=== PATIENT | male | born 1980 | race Two or more races ===

== ENCOUNTER → 2018-04-14 | Outpatient (CLI) | payer OTHER ==
[2018-04-14 09:42] LABS: microscopic required? NO
[2018-04-14 10:10] LABS: urine erythrocyte NEGATIVE (NEGATIVE)
[2018-04-16 13:10] LABS: CARBON DIOXIDE 30.1 mmol/L (21-32); CHLORIDE SERUM 101 mmol/L (98-107); GLUCOSE SERUM 91 mg/dL (74-106); SODIUM SERUM 137 mmol/L (136-145)
[2018-04-16 13:11] LABS: CREATININE SERUM 0.9 mg/dL (0.7-1.3); GFR1 > 60 mL/min; TOTAL PROTEIN, SERUM 8.1 g/dL (6.4-8.2)
[2018-04-16 13:12] LABS: ALKALINE PHOSPHATASE 71 U/L (46-116); ALT/SGPT 29 U/L (16-63); AST/SGOT 20 U/L (15-37); BILIRUBIN TOTAL 0.4 mg/dL (0.20-1.00); CALCIUM 8.8 mg/dL (8.5-10.1); CHOLESTEROL 177 mg/dL (<200); CHOLESTEROL/HDL RATIO 3.3; FREE T4 1.02 ng/dL (0.76-1.46); HDL CHOLESTEROL 54 mg/dL (40-60); TRIGLYCERIDES 72 mg/dL (<150)
[2018-04-16 13:15] LABS: BASOPHIL % 0.5 % (0-2); PLATELET COUNT 278 x10^3mcL (130-400); RED CELL DISTRIBUTION WIDTH 14.6 % (11.5-14.5)
[2018-04-16 13:18] LABS: RAPID PLASMA REAGIN Non Reactive (Nonreactive)
== END | disposition home or self-care (01) ==
LOC: LB 08:46
DX: Z00.00 Encounter for general adult medical examination without abnormal findings (principal)
CPT/HCPCS: 84439